=== PATIENT | female | born 1980 | race Hispanic/Latino ===

== ENCOUNTER 2019-12-06 17:32 | Emergency (ER) | payer OTHER ==
[~2019-12-06] VITALS: Ht 162.6 cm; Wt 87.9 kg
[~2019-12-06 17:32] MED LIST: BENADRYL25 MG; PREDNISONE20 MG PO
[2019-12-06] MEDS ORDERED: KEFLEX500 MG PO (21:39)
== END 2019-12-06 21:48 | disposition home or self-care (01) ==
LOC: ED 17:32
DX: J10.1 Influenza due to other identified influenza virus with other respiratory manifestations (principal); N39.0 Urinary tract infection, site not specified; Z79.899 Other long term (current) drug therapy; Z79.52 Long term (current) use of systemic steroids
CPT/HCPCS: 80053; 81001; 85025; 87502; 96360; 99283-25; A9270; J7030

== ENCOUNTER 2022-06-16 01:48 | Inpatient (IN) | payer OTHER ==
[~2022-06-16 01:48] MED LIST changes: +KEFLEX500 MG PO
--- NOTE | 2022-06-17 07:47 | PR ---
[facility] [address] [place], [place] [address] Signed PP Progress Notes Datetime Report Generated by CPN: 06/17/2022 07:47 SUBJECTIVE: [id number] Pain: Within Normal Limits Nausea/Vomiting: Denies Flatus: Yes Vital Signs: [id number] Vital Signs: Reviewed; Within Normal Limits Cardiovascular: Normal Respiratory: Normal Abdomen/Uterus: Normal Lochia: Normal Vulva/Perineum: Not Done Breasts: Not Done CVA Tenderness: Normal Extremities: Normal Incision: Not Applicable Progress: Not Applicable Exam Comments: Fundus firm U-2 nontender IMPRESSION/PLAN/PROCEDURES: [id number] Impression: Normal Progression Plan: Discharge Progress Notes: Pt seen and examined. Doing well. Ambulating voiding and tolerating full diet. Pain and lochia minimal. Bottlefeeding. Desires d/c home today. Reviewed d/c instructions. Undecided on pp contraception. Signing Physician: Radha Barrientos DO Copies: ~ *Electronically Signed* 06/17/22 0747 RADHA BARRIENTSO DO PATIENT NAME: KATHLEEN WAYJUANITA Dewitt PROGRESS NOTE DATE OF : 82 PHYSICIAN: RADHA BARRIENTOS DO RPT #: [id number] REPORT IS CONFIDENTIAL AND NOT TO BE RELEASED WITHOUT AUTHORIZATION
== END 2022-06-17 13:55 | disposition home or self-care (01) | DRG 807 ==
LOC: FBCO 01:48 → FBC 01:59
PROVIDERS: ADMIT Obstetrics & Gynecology; ATTEND Obstetrics & Gynecology
PROC: 10E0XZZ Delivery of Products of Conception, External Approach (ICD-10-PCS; principal; 2022-06-16)
PROC: 0KQM0ZZ Repair Perineum Muscle, Open Approach (ICD-10-PCS; 2022-06-16)
DX: O62.3 Precipitate labor (principal); Z37.0 Single live birth; O70.1 Second degree perineal laceration during delivery; O48.0 Post-term pregnancy; Z3A.40 40 weeks gestation of pregnancy; Z67.40 Type O blood, Rh positive; Z20.822 Contact with and (suspected) exposure to COVID-19
CPT/HCPCS: 36415; 85025; 85027; 86850; 86900; 86901; 87502; A9270; J2590; U0003